=== PATIENT | male | born 1940 | race African-American/Black ===

== ENCOUNTER → 2016-10-18 | Outpatient (CLI) | payer MEDICARE, MEDICAID ==
[~2016-10-18] MED LIST: AMLO10TA80 PO; HYDR25TA PO; IBUP-1510 PO; INSLIS SQ; INSU3INS6 SUBCUT; ISOS20TA8 PO; MELO-57 PO; METF10002 PO; OMEP40CA34 PO; SITA50TA3 PO; VALS320T9 PO
== END | disposition home or self-care (01) ==
LOC: CT 12:35
PROVIDERS: ATTEND Internal Medicine Cardiovascular Disease
DX: M47.896 Other spondylosis, lumbar region (principal); M54.40 Lumbago with sciatica, unspecified side; M48.06 Spinal stenosis, lumbar region; M47.894 Other spondylosis, thoracic region
CPT/HCPCS: 72128; 72131

== ENCOUNTER → 2019-08-13 | Day surgery (SDC) | payer MEDICARE, MEDICAID ==
[~2019-08-13] MED LIST changes: -IBUP-1510 PO; +IBUP-2030 PO; +LIDOCAINE HCL 1% 20ML VIAL (Pyxis) INJ ONE; +MELO-104 PO; -MELO-57 PO; +METF-416 PO; -METF10002 PO; +OMEP40CA12 PO; -OMEP40CA34 PO; +SODIUM BICARBONATE 4% (2.4MEQ) 5ML VIAL IV ONE; +VALS320T2 PO; -VALS320T9 PO
== END | disposition home or self-care (01) ==
LOC: RAD 09:39
PROVIDERS: ATTEND Internal Medicine
DX: E04.2 Nontoxic multinodular goiter (principal); Z79.82 Long term (current) use of aspirin; Z79.899 Other long term (current) drug therapy; Z79.4 Long term (current) use of insulin; Z79.84 Long term (current) use of oral hypoglycemic drugs; Z83.3 Family history of diabetes mellitus; Z80.8 Family history of malignant neoplasm of other organs or systems; Z82.3 Family history of stroke
CPT/HCPCS: 10005; 10006; 88172; 88173; J3490

== ENCOUNTER 2019-08-17 10:45 | Inpatient (IN) | payer MEDICARE, MEDICAID ==
[~2019-08-17] VITALS: Ht 182.9 cm; Wt 82.2 kg
[~2019-08-17 10:45] MED LIST changes: -LIDOCAINE HCL 1% 20ML VIAL (Pyxis) INJ ONE; -SODIUM BICARBONATE 4% (2.4MEQ) 5ML VIAL IV ONE
[2019-08-17 13:07] LABS: BASOPHILS % 1.1 % (0.0-2.0); HEMATOCRIT. 42.8 % (42.0-52.0); HEMOGLOBIN. 14.3 g/dL (14.0-18.0); LYMPHOCYTES % 35.7 % (20.0-50.0); MEAN CORPUSCULAR HEMOGLOBIN 28.9 pg (28.0-32.0); MEAN CORPUSCULAR VOLUME 86.5 fL (80.0-94.0); MEAN PLATELET VOLUME 8.4 fl (7.4-10.4); MONOCYTES % 6.2 % (2.0-8.0); PLATELET 146 x1000/uL (130-400); RED BLOOD CELL COUNT 4.95 mill/uL (4.7-6.1); RED CELL DISTRIBUTION WIDTH 13.2 % (11.6-14.6)
[2019-08-17 13:10] LABS: CHLORIDE 106 mEq/L (98-107)
[2019-08-17 13:13] LABS: PARTIAL THROMBOPLASTIN TIME 26.7 sec (23.4-31.0); PROTHROMBIN TIME 10.8 sec (9.6-11.0)
[2019-08-17] MEDS ORDERED: TETRACAINE 0.5% OPHTH DROPS 4ML RIGHTEYE ONE (14:00)
[2019-08-17 14:39] LABS: T4 FREE 1.07 ng/dL (0.76-1.46)
[2019-08-17 22:30] VITALS: BP 160/96
[2019-08-17] MEDS ORDERED: HYDROCODONE/APAP 7.5/325MG 1 TAB TABLET PO PRN (23:15)
[2019-08-17] MEDS ORDERED: DEXTROSE 50% WATER 50ML SYRINGE IV PRN (23:15)
[2019-08-18 00:57] VITALS: BP 119/74
[2019-08-18] MEDS ORDERED: POTASSIUM CHLORIDE 20MEQ TABLET SR PO NR (01:00)
[2019-08-18 04:00] VITALS: BP 152/82
[2019-08-18] MEDS: BLOOD SUGAR DIAGNOSTIC STRIP TEST SCH ×4 (07:20→21:01)
[2019-08-18] MEDS: INSULIN LISPRO 100 UNITS/ML SUBCUT SCH ×4 (07:50→21:50)
[2019-08-18 08:04] VITALS: BP 171/88
[2019-08-18] MEDS ORDERED: AMLODIPINE 5MG TABLET PO SCH (09:00)
[2019-08-18] MEDS: CLOPIDOGREL 75MG TABLET PO SCH (09:16)
[2019-08-18] MEDS: DOCUSATE SODIUM 100MG CAPSULE PO SCH (09:16)
[2019-08-18] MEDS: ASPIRIN 81MG EC TABLET PO SCH (09:17)
[2019-08-18] MEDS: ISOSORBIDE DINITRATE 20MG TABLET PO SCH ×2 (09:17→18:03)
[2019-08-18] MEDS: LOSARTAN POTASSIUM 100 MG TABLET PO SCH (09:18)
[2019-08-18] MEDS: AMLODIPINE 10MG TABLET PO SCH (10:41)
[2019-08-18 12:04] VITALS: BP 117/64
[2019-08-18 12:27] LABS: CHLORIDE 107 mEq/L (98-107)
[2019-08-18 16:04] VITALS: BP 113/58
[2019-08-18 20:00] VITALS: BP 116/78
[2019-08-18] MEDS: ATORVASTATIN CALCIUM 40MG TABLET PO SCH (20:01)
[2019-08-18] MEDS: INSULIN GLARGINE UD 100 UNITS/ML SYR SUBCUT SCH (21:50)
[2019-08-18] MEDS ORDERED: INSULIN GLARGINE UD 100 UNITS/ML SYR SUBCUT SCH (22:00)
[2019-08-19] VITALS: BP 127/75
[2019-08-19 04:00] VITALS: BP 137/89
[2019-08-19] MEDS: BLOOD SUGAR DIAGNOSTIC STRIP TEST SCH ×4 (06:45→21:05)
[2019-08-19] MEDS: INSULIN LISPRO 100 UNITS/ML SUBCUT SCH ×4 (07:01→21:05)
[2019-08-19] MEDS: CLOPIDOGREL 75MG TABLET PO SCH (11:27)
[2019-08-19] MEDS: AMLODIPINE 10MG TABLET PO SCH (11:27)
[2019-08-19] MEDS: DOCUSATE SODIUM 100MG CAPSULE PO SCH (11:28)
[2019-08-19] MEDS: ISOSORBIDE DINITRATE 20MG TABLET PO SCH ×2 (11:28→17:00)
[2019-08-19] MEDS: ASPIRIN 81MG EC TABLET PO SCH (11:28)
[2019-08-19] MEDS: LOSARTAN POTASSIUM 100 MG TABLET PO SCH (11:30)
[2019-08-19 12:00] VITALS: BP 149/88
[2019-08-19 16:00] VITALS: BP 130/78
[2019-08-19 20:00] VITALS: BP 122/77
[2019-08-19] MEDS: ATORVASTATIN CALCIUM 40MG TABLET PO SCH (21:02)
[2019-08-19] MEDS: INSULIN GLARGINE UD 100 UNITS/ML SYR SUBCUT SCH (21:05)
[2019-08-20] VITALS: BP 141/86
[2019-08-20 04:00] VITALS: BP 153/97
[2019-08-20] MEDS: BLOOD SUGAR DIAGNOSTIC STRIP TEST SCH (06:23)
[2019-08-20] MEDS: INSULIN LISPRO 100 UNITS/ML SUBCUT SCH (07:47)
[2019-08-20 08:00] VITALS: BP 152/82
[2019-08-20] MEDS: DOCUSATE SODIUM 100MG CAPSULE PO SCH (09:00)
[2019-08-20] MEDS: ISOSORBIDE DINITRATE 20MG TABLET PO SCH (09:00)
[2019-08-20] MEDS: LOSARTAN POTASSIUM 100 MG TABLET PO SCH (09:00)
[2019-08-20] MEDS: CLOPIDOGREL 75MG TABLET PO SCH (09:00)
[2019-08-20] MEDS: AMLODIPINE 10MG TABLET PO SCH (09:00)
[2019-08-20] MEDS: ASPIRIN 81MG EC TABLET PO SCH (09:00)
[2019-08-20 10:15] VITALS: BP 152/82
== END 2019-08-20 11:25 | disposition home health service (06) | DRG 206 ==
LOC: ER 11:16 → 6WST 13:50 → EDBEDREQ 14:03 → EDBEDREQTM 14:04 → ENRESERV 20:59
PROVIDERS: ADMIT Internal Medicine; ATTEND Internal Medicine
DX: M94.0 Chondrocostal junction syndrome [Tietze] (principal); F11.20 Opioid dependence, uncomplicated; I25.2 Old myocardial infarction; E04.9 Nontoxic goiter, unspecified; E11.22 Type 2 diabetes mellitus with diabetic chronic kidney disease; F03.90 Unspecified dementia, unspecified severity, without behavioral disturbance, psychotic disturbance, mood disturbance, and anxiety; F17.200 Nicotine dependence, unspecified, uncomplicated; F32.9 Major depressive disorder, single episode, unspecified; I25.10 Atherosclerotic heart disease of native coronary artery without angina pectoris; J44.9 Chronic obstructive pulmonary disease, unspecified; M48.061 Spinal stenosis, lumbar region without neurogenic claudication; G89.4 Chronic pain syndrome; I12.9 Hypertensive chronic kidney disease with stage 1 through stage 4 chronic kidney disease, or unspecified chronic kidney disease; R29.6 Repeated falls; N18.9 Chronic kidney disease, unspecified; Z60.2 Problems related to living alone; E89.0 Postprocedural hypothyroidism; M51.36 Other intervertebral disc degeneration, lumbar region; E78.00 Pure hypercholesterolemia, unspecified; Z86.73 Personal history of transient ischemic attack (TIA), and cerebral infarction without residual deficits; Z82.49 Family history of ischemic heart disease and other diseases of the circulatory system; Z95.1 Presence of aortocoronary bypass graft; Z79.4 Long term (current) use of insulin; Z79.899 Other long term (current) drug therapy; Z79.84 Long term (current) use of oral hypoglycemic drugs
CPT/HCPCS: 36415; 71045; 72110; 76770; 80048; 80053; 82962; 83036; 83880; 84439; 84443; 84484; 85025; 93005; 93306; 93970; 99285; J1815

== ENCOUNTER 2019-10-04 20:18 | Inpatient (IN) | payer MEDICARE, MEDICAID ==
[~2019-10-04] VITALS: Ht 182.9 cm; Wt 98.9 kg
[~2019-10-04 20:18] MED LIST changes: -IBUP-2030 PO; -INSLIS SQ; -MELO-104 PO; -METF-416 PO; -VALS320T2 PO
[2019-10-04 22:23] LABS: CLARITY URINE CLEAR (CLEAR); COLOR URINE YELLOW (YELLOW); KETONES URINE NEGATIVE (NEGATIVE); LEUKOCYTE ESTERASE URINE NEGATIVE (NEGATIVE); NITRITE URINE NEGATIVE (NEGATIVE); OCCULT BLOOD URINE NEGATIVE (NEGATIVE); PROTEIN URINE 1+ (NEGATIVE); SPECIFIC GRAVITY URINE 1.013 (1.005-1.030)
[2019-10-04 22:45] LABS: *AMPHETAMINES SCREEN URINE NEGATIVE (NEGATIVE); *BARBITURATES SCREEN URINE NEGATIVE (NEGATIVE); *BENZODIAZEPINES SCREEN URINE NEGATIVE (NEGATIVE); *COCAINE SCREEN URINE NEGATIVE (NEGATIVE); CANNABINOID URINE SCREEN NEGATIVE (NEGATIVE); METHADONE URINE SCREEN NEGATIVE (NEGATIVE); OPIATES URINE SCREEN PRESUMTIVE POSITIVE (NEGATIVE); PHENCYCLIDINE URINE SCREEN NEGATIVE (NEGATIVE)
[2019-10-04 23:05] LABS: EOSINOPHILS % 3.7 % (0.0-5.0); HEMATOCRIT. 44.4 % (42.0-52.0); HEMOGLOBIN. 14.8 g/dL (14.0-18.0); LYMPHOCYTES % 33.5 % (20.0-50.0); MEAN CORPUSCULAR HEMOGLOBIN 28.9 pg (28.0-32.0); MEAN CORPUSCULAR VOLUME 86.7 fL (80.0-94.0); MEAN PLATELET VOLUME 8.6 fl (7.4-10.4); MONOCYTES % 5.9 % (2.0-8.0); NEUTROPHILS % 55.9 % (40.0-76.0); PLATELET 131 x1000/uL (130-400); RED BLOOD CELL COUNT 5.12 mill/uL (4.7-6.1); RED CELL DISTRIBUTION WIDTH 13.3 % (11.6-14.6)
[2019-10-04 23:12] LABS: CHLORIDE 106 mEq/L (98-107)
[2019-10-04 23:17] LABS: ETHANOL BLOOD < 10 mg/dL
[2019-10-04 23:19] LABS: LDL CHOLESTEROL 132 mg/dL (5-100)
[2019-10-05] VITALS (10 sets, daily range): BP systolic 98–166; BP diastolic 58–94
[2019-10-05 00:04] LABS: PROTHROMBIN TIME 11.1 sec (9.6-11.0)
[2019-10-05] MEDS ORDERED: ASPIRIN 325MG EC TABLET PO ONE (00:15)
[2019-10-05] MEDS ORDERED: IOHEXOL-350 100 ML BOTTLE ONE (01:24)
[2019-10-05] MEDS ORDERED: ONDANSETRON HCL 4MG/2ML INJ IV PRN (05:00)
[2019-10-05] MEDS ORDERED: CLONIDINE 0.1MG TABLET PO PRN (05:00)
[2019-10-05] MEDS ORDERED: ACETAMINOPHEN 325MG TABLET PO PRN (05:00)
[2019-10-05 05:40] LABS: BASOPHILS % 1.2 % (0.0-2.0); EOSINOPHILS % 3.4 % (0.0-5.0); HEMATOCRIT. 40.8 % (42.0-52.0); HEMOGLOBIN. 13.7 g/dL (14.0-18.0); LYMPHOCYTES % 32.7 % (20.0-50.0); MEAN CORPUSCULAR HEMOGLOBIN 28.9 pg (28.0-32.0); MEAN CORPUSCULAR VOLUME 85.9 fL (80.0-94.0); MEAN PLATELET VOLUME 8.8 fl (7.4-10.4); MONOCYTES % 7.2 % (2.0-8.0); NEUTROPHILS % 55.5 % (40.0-76.0); PLATELET 142 x1000/uL (130-400); RED BLOOD CELL COUNT 4.74 mill/uL (4.7-6.1); RED CELL DISTRIBUTION WIDTH 13.3 % (11.6-14.6)
[2019-10-05 06:19] LABS: CHLORIDE 107 mEq/L (98-107)
[2019-10-05] MEDS: DEXT 5%/0.45% NACL 1000ML 1,000 ML IV SCH (06:52)
[2019-10-05] MEDS ORDERED: ENOXAPARIN 30MG/0.3ML SYR SUBCUT SCH (09:00)
[2019-10-05] MEDS ORDERED: ENOXAPARIN 40MG/0.4ML SYR SUBCUT SCH (09:00)
[2019-10-05] MEDS ORDERED: AMLODIPINE 10MG TABLET PO SCH (12:00)
[2019-10-05] MEDS ORDERED: ISOSORBIDE DINITRATE 20MG TABLET PO SCH (12:00)
[2019-10-05] MEDS: AMLODIPINE 5MG TABLET PO SCH ×2 (17:04→21:17)
[2019-10-05] MEDS: LOSARTAN POTASSIUM 25 MG TABLET PO SCH ×2 (17:07→21:18)
[2019-10-05] MEDS: ISOSORBIDE DINITRATE 20MG TABLET PO SCH ×2 (17:08→21:17)
[2019-10-05] MEDS: ATORVASTATIN CALCIUM 40MG TABLET PO SCH (21:18)
[2019-10-05] MEDS: INSULIN GLARGINE UD 100 UNITS/ML SYR SUBCUT SCH (21:19)
[2019-10-06] VITALS (11 sets, daily range): BP systolic 122–174; BP diastolic 64–100
[2019-10-06] MEDS: DEXT 5%/0.45% NACL 1000ML 1,000 ML IV SCH (05:50)
[2019-10-06] MEDS: PANTOPRAZOLE 40MG DR TABLET PO SCH (06:07)
[2019-10-06] MEDS: GLIMEPIRIDE 2MG TABLET PO SCH (06:08)
[2019-10-06] MEDS: ISOSORBIDE DINITRATE 20MG TABLET PO SCH ×3 (06:08→21:20)
[2019-10-06 07:13] LABS: BASOPHILS % 0.6 % (0.0-2.0); EOSINOPHILS % 3.1 % (0.0-5.0); HEMATOCRIT. 42.6 % (42.0-52.0); HEMOGLOBIN. 14.1 g/dL (14.0-18.0); LYMPHOCYTES % 40.8 % (20.0-50.0); MEAN CORPUSCULAR HEMOGLOBIN 28.6 pg (28.0-32.0); MEAN CORPUSCULAR VOLUME 86.5 fL (80.0-94.0); MEAN PLATELET VOLUME 8.7 fl (7.4-10.4); MONOCYTES % 6.6 % (2.0-8.0); NEUTROPHILS % 48.9 % (40.0-76.0); PLATELET 161 x1000/uL (130-400); RED BLOOD CELL COUNT 4.93 mill/uL (4.7-6.1); RED CELL DISTRIBUTION WIDTH 13.3 % (11.6-14.6)
[2019-10-06 07:28] LABS: PHOSPHORUS 2.9 mg/dL (2.5-4.9)
[2019-10-06] MEDS ORDERED: HYDRALAZINE 20MG/ML VIAL IV PRN (07:45)
[2019-10-06] MEDS: LOSARTAN POTASSIUM 25 MG TABLET PO SCH ×2 (09:57→21:19)
[2019-10-06] MEDS: AMLODIPINE 5MG TABLET PO SCH ×2 (09:58→21:19)
[2019-10-06] MEDS: ATORVASTATIN CALCIUM 40MG TABLET PO SCH (21:19)
[2019-10-06] MEDS: INSULIN GLARGINE UD 100 UNITS/ML SYR SUBCUT SCH (21:44)
[2019-10-07] VITALS (7 sets, daily range): BP systolic 124–151; BP diastolic 73–92
[2019-10-07] MEDS: DEXT 5%/0.45% NACL 1000ML 1,000 ML IV SCH (05:00)
[2019-10-07] MEDS: ISOSORBIDE DINITRATE 20MG TABLET PO SCH ×2 (06:42→13:04)
[2019-10-07] MEDS: GLIMEPIRIDE 2MG TABLET PO SCH (06:42)
[2019-10-07] MEDS: PANTOPRAZOLE 40MG DR TABLET PO SCH (06:42)
[2019-10-07] MEDS: LOSARTAN POTASSIUM 25 MG TABLET PO SCH (08:17)
[2019-10-07] MEDS: AMLODIPINE 5MG TABLET PO SCH (08:17)
== END 2019-10-07 16:05 | DRG 64 ==
LOC: ER 20:18 → EDBEDREQ 23:32 → EDBEDREQTM 23:32 → EDBEDREQSVC 23:32 → ENRESERV 10-05 01:50 → UNDOADMIN 10-05 03:11 → 3WST 10-05 03:11 → 5WST 10-07 01:12 → 3WST 10-07 01:12 → UNDODISIN 10-07 16:00 → 5WST 10-07 16:05
PROVIDERS: ADMIT Internal Medicine; ATTEND Internal Medicine
PROC: 4A00X4Z Measurement of Central Nervous Electrical Activity, External Approach (ICD-10-PCS; principal; 2019-10-06)
DX: I63.9 Cerebral infarction, unspecified (principal); N17.0 Acute kidney failure with tubular necrosis; G81.91 Hemiplegia, unspecified affecting right dominant side; I10 Essential (primary) hypertension; E11.9 Type 2 diabetes mellitus without complications; E78.5 Hyperlipidemia, unspecified; R47.1 Dysarthria and anarthria; J44.9 Chronic obstructive pulmonary disease, unspecified; Z86.73 Personal history of transient ischemic attack (TIA), and cerebral infarction without residual deficits; I25.10 Atherosclerotic heart disease of native coronary artery without angina pectoris; R29.810 Facial weakness; I65.29 Occlusion and stenosis of unspecified carotid artery; R47.81 Slurred speech; I68.0 Cerebral amyloid angiopathy; Z87.891 Personal history of nicotine dependence; Z91.19 Patient's noncompliance with other medical treatment and regimen; Z95.1 Presence of aortocoronary bypass graft; Z79.899 Other long term (current) drug therapy; Z79.4 Long term (current) use of insulin
CPT/HCPCS: 36415; 70496; 70498; 70551; 71045; 80048; 80053; 80305; 80320; 81003; 82962; 83721; 83735; 84100; 84484; 85025; 92610; 93005; 93306; 93880; 95816; 97110; 97116; 97162; 97166; 97530; 97535; 99285; J0360; J1815; Q9967; G0480

== ENCOUNTER 2019-10-05 16:05 | Inpatient (IN) | payer MEDICARE, MEDICAID ==
[~2019-10-05] VITALS: Ht 182.9 cm; Wt 93.0 kg
[2019-10-07 18:01] VITALS: BP 153/83
[2019-10-07 18:07] VITALS: BP 153/83
[2019-10-07] MEDS ORDERED: ONDANSETRON HCL 4MG/2ML INJ IV PRN (18:15)
[2019-10-07] MEDS ORDERED: DEXT 5%/0.45% NACL 1000ML 1,000 ML IV SCH (18:15)
[2019-10-07] MEDS ORDERED: HYDRALAZINE 20MG/ML VIAL IV PRN (18:15)
[2019-10-07] MEDS ORDERED: CLONIDINE 0.1MG TABLET PO PRN (18:15)
[2019-10-07] MEDS ORDERED: HYDRALAZINE 10 MG in SODIUM CHLORIDE 0.9% 49.5 ML IV PRN (18:30)
[2019-10-07] MEDS ORDERED: HYDRALAZINE 5 MG in SODIUM CHLORIDE 0.9% 49.75 ML IV PRN (18:30)
[2019-10-07 20:00] VITALS: BP 147/89
[2019-10-07] MEDS: LOSARTAN POTASSIUM 25 MG TABLET PO SCH (21:21)
[2019-10-07] MEDS: AMLODIPINE 5MG TABLET PO SCH (21:21)
[2019-10-07] MEDS: ATORVASTATIN CALCIUM 40MG TABLET PO SCH (21:21)
[2019-10-07] MEDS: ISOSORBIDE DINITRATE 20MG TABLET PO SCH (21:22)
[2019-10-07] MEDS: INSULIN GLARGINE UD 100 UNITS/ML SYR SUBCUT SCH (22:10)
[2019-10-08] MEDS: ISOSORBIDE DINITRATE 20MG TABLET PO SCH ×3 (05:45→21:56)
[2019-10-08] MEDS: PANTOPRAZOLE 40MG DR TABLET PO SCH (06:22)
[2019-10-08] MEDS: GLIMEPIRIDE 2MG TABLET PO SCH (06:23)
[2019-10-08 08:00] VITALS: BP 119/65
[2019-10-08] MEDS: AMLODIPINE 5MG TABLET PO SCH ×2 (08:24→20:13)
[2019-10-08] MEDS: LOSARTAN POTASSIUM 25 MG TABLET PO SCH ×2 (08:24→20:13)
[2019-10-08 13:00] VITALS: BP 151/85
[2019-10-08] MEDS: ACETAMINOPHEN 325MG TABLET PO PRN (14:39)
[2019-10-08 20:00] VITALS: BP_SYST 137; BP_SYST 151; BP_DIAS 74; BP_DIAS 80
[2019-10-08] MEDS: DOCUSATE SODIUM 100MG CAPSULE PO SCH (20:12)
[2019-10-08] MEDS: ATORVASTATIN CALCIUM 40MG TABLET PO SCH (20:13)
[2019-10-08] MEDS: INSULIN GLARGINE UD 100 UNITS/ML SYR SUBCUT SCH (22:10)
[2019-10-09] MEDS: ISOSORBIDE DINITRATE 20MG TABLET PO SCH ×3 (05:26→21:14)
[2019-10-09] MEDS: PANTOPRAZOLE 40MG DR TABLET PO SCH (06:01)
[2019-10-09] MEDS: GLIMEPIRIDE 2MG TABLET PO SCH (06:01)
[2019-10-09 06:44] LABS: BASOPHILS % 0.6 % (0.0-2.0); HEMOGLOBIN. 13.3 g/dL (14.0-18.0); LYMPHOCYTES % 45.3 % (20.0-50.0); MEAN CORPUSCULAR HEMOGLOBIN 28.7 pg (28.0-32.0); MEAN CORPUSCULAR VOLUME 85.9 fL (80.0-94.0); MEAN PLATELET VOLUME 8.8 fl (7.4-10.4); MONOCYTES % 7.5 % (2.0-8.0); NEUTROPHILS % 42.6 % (40.0-76.0); PLATELET 155 x1000/uL (130-400); RED BLOOD CELL COUNT 4.65 mill/uL (4.7-6.1); RED CELL DISTRIBUTION WIDTH 13.2 % (11.6-14.6)
[2019-10-09 08:00] VITALS: BP 113/66
[2019-10-09] MEDS: AMLODIPINE 5MG TABLET PO SCH ×3 (08:55→21:14)
[2019-10-09] MEDS: LOSARTAN POTASSIUM 25 MG TABLET PO SCH (09:00)
[2019-10-09] MEDS: DOCUSATE SODIUM 100MG CAPSULE PO SCH ×2 (09:57→17:48)
[2019-10-09] MEDS ORDERED: POTASSIUM CHLORIDE 20MEQ/PACKET PO SCH (11:15)
[2019-10-09] MEDS: LOSARTAN POTASSIUM 100 MG TABLET PO SCH (17:48)
[2019-10-09 20:00] VITALS: BP 145/89
[2019-10-09] MEDS: ATORVASTATIN CALCIUM 40MG TABLET PO SCH (21:13)
[2019-10-09] MEDS: INSULIN GLARGINE UD 100 UNITS/ML SYR SUBCUT SCH (21:57)
[2019-10-10] MEDS: ISOSORBIDE DINITRATE 20MG TABLET PO SCH ×3 (05:46→22:12)
[2019-10-10] MEDS: BISACODYL 5MG TABLET PO PRN (05:47)
[2019-10-10] MEDS: GLIMEPIRIDE 2MG TABLET PO SCH (06:28)
[2019-10-10] MEDS: PANTOPRAZOLE 40MG DR TABLET PO SCH (06:28)
[2019-10-10 07:09] LABS: BASOPHILS % 0.8 % (0.0-2.0); EOSINOPHILS % 3.1 % (0.0-5.0); HEMATOCRIT. 41.4 % (42.0-52.0); HEMOGLOBIN. 13.9 g/dL (14.0-18.0); LYMPHOCYTES % 44.6 % (20.0-50.0); MEAN CORPUSCULAR HEMOGLOBIN 28.7 pg (28.0-32.0); MEAN CORPUSCULAR VOLUME 85.4 fL (80.0-94.0); MEAN PLATELET VOLUME 8.8 fl (7.4-10.4); MONOCYTES % 6.9 % (2.0-8.0); NEUTROPHILS % 44.6 % (40.0-76.0); PLATELET 174 x1000/uL (130-400); RED BLOOD CELL COUNT 4.84 mill/uL (4.7-6.1); RED CELL DISTRIBUTION WIDTH 13.1 % (11.6-14.6)
[2019-10-10 08:30] VITALS: BP 117/53
[2019-10-10] MEDS: AMLODIPINE 5MG TABLET PO SCH ×2 (08:35→20:38)
[2019-10-10] MEDS: DOCUSATE SODIUM 100MG CAPSULE PO SCH ×2 (08:35→16:20)
[2019-10-10] MEDS: ACETAMINOPHEN 325MG TABLET PO PRN ×2 (08:35→14:41)
[2019-10-10] MEDS: LOSARTAN POTASSIUM 100 MG TABLET PO SCH (08:35)
[2019-10-10 20:00] VITALS: BP 146/84
[2019-10-10] MEDS: ATORVASTATIN CALCIUM 40MG TABLET PO SCH (20:38)
[2019-10-10] MEDS: INSULIN GLARGINE UD 100 UNITS/ML SYR SUBCUT SCH (22:12)
[2019-10-11] MEDS: PANTOPRAZOLE 40MG DR TABLET PO SCH (06:06)
[2019-10-11] MEDS: ISOSORBIDE DINITRATE 20MG TABLET PO SCH ×3 (06:06→17:01)
[2019-10-11] MEDS: GLIMEPIRIDE 2MG TABLET PO SCH (06:06)
[2019-10-11 06:48] LABS: BASOPHILS % 0.8 % (0.0-2.0); HEMATOCRIT. 41.5 % (42.0-52.0); LYMPHOCYTES % 46.2 % (20.0-50.0); MEAN PLATELET VOLUME 8.7 fl (7.4-10.4); MONOCYTES % 6.5 % (2.0-8.0); NEUTROPHILS % 42.5 % (40.0-76.0); PLATELET 170 x1000/uL (130-400); RED BLOOD CELL COUNT 4.83 mill/uL (4.7-6.1); RED CELL DISTRIBUTION WIDTH 13.1 % (11.6-14.6)
[2019-10-11] MEDS ORDERED: POTASSIUM CHLORIDE 20MEQ/PACKET PO SCH (07:45)
[2019-10-11] MEDS ORDERED: DEXT 5%/0.45% NACL 1000ML 1,000 ML IV ONE (07:45)
[2019-10-11 08:10] VITALS: BP 123/58
[2019-10-11 08:14] LABS: PHOSPHORUS 3.4 mg/dL (2.5-4.9)
[2019-10-11] MEDS: DOCUSATE SODIUM 100MG CAPSULE PO SCH ×2 (08:38→17:01)
[2019-10-11] MEDS: AMLODIPINE 5MG TABLET PO SCH ×2 (08:38→21:43)
[2019-10-11 13:25] VITALS: BP 130/46
[2019-10-11] MEDS ORDERED: LIDOCAINE 5% PATCH TOP PRN (16:15)
[2019-10-11 16:52] VITALS: BP 141/77
[2019-10-11 20:00] VITALS: BP 143/71
[2019-10-11] MEDS: ATORVASTATIN CALCIUM 40MG TABLET PO SCH (21:43)
[2019-10-11] MEDS: FAMOTIDINE 20MG TABLET PO SCH (21:43)
[2019-10-11] MEDS: POLYVINYL ALCOHOL OPHTH DROPS 15ML BOTHEYE PRN (21:43)
[2019-10-11] MEDS: INSULIN GLARGINE UD 100 UNITS/ML SYR SUBCUT SCH (22:11)
[2019-10-12] MEDS: POLYVINYL ALCOHOL OPHTH DROPS 15ML BOTHEYE PRN ×2 (05:36→21:35)
[2019-10-12] MEDS: GLIMEPIRIDE 2MG TABLET PO SCH (06:36)
[2019-10-12 07:27] LABS: BASOPHILS % 0.6 % (0.0-2.0); EOSINOPHILS % 4.2 % (0.0-5.0); HEMATOCRIT. 40.4 % (42.0-52.0); HEMOGLOBIN. 13.1 g/dL (14.0-18.0); LYMPHOCYTES % 34.9 % (20.0-50.0); MEAN CORPUSCULAR HEMOGLOBIN 28.2 pg (28.0-32.0); MEAN CORPUSCULAR VOLUME 86.7 fL (80.0-94.0); MEAN PLATELET VOLUME 8.6 fl (7.4-10.4); MONOCYTES % 7.5 % (2.0-8.0); NEUTROPHILS % 52.8 % (40.0-76.0); PLATELET 162 x1000/uL (130-400); RED BLOOD CELL COUNT 4.65 mill/uL (4.7-6.1); RED CELL DISTRIBUTION WIDTH 13.6 % (11.6-14.6)
[2019-10-12 08:01] VITALS: BP 146/77
[2019-10-12 08:09] LABS: PHOSPHORUS 2.6 mg/dL (2.5-4.9)
[2019-10-12] MEDS: ISOSORBIDE DINITRATE 20MG TABLET PO SCH ×3 (08:20→17:21)
[2019-10-12] MEDS: AMLODIPINE 5MG TABLET PO SCH ×2 (08:20→21:35)
[2019-10-12] MEDS: DOCUSATE SODIUM 100MG CAPSULE PO SCH ×2 (08:21→17:21)
[2019-10-12] MEDS: POTASSIUM CHLORIDE 20MEQ TABLET SR PO SCH (14:11)
[2019-10-12] MEDS: BISACODYL 5MG TABLET PO PRN (17:21)
[2019-10-12 20:00] VITALS: BP 133/76
[2019-10-12] MEDS: ATORVASTATIN CALCIUM 40MG TABLET PO SCH (21:34)
[2019-10-12] MEDS: FAMOTIDINE 20MG TABLET PO SCH (21:34)
[2019-10-12] MEDS: INSULIN GLARGINE UD 100 UNITS/ML SYR SUBCUT SCH (21:43)
[2019-10-13 06:29] LABS: BASOPHILS % 0.8 % (0.0-2.0); EOSINOPHILS % 4.1 % (0.0-5.0); HEMATOCRIT. 40.6 % (42.0-52.0); HEMOGLOBIN. 13.7 g/dL (14.0-18.0); LYMPHOCYTES % 43.1 % (20.0-50.0); MEAN CORPUSCULAR VOLUME 86.1 fL (80.0-94.0); MEAN PLATELET VOLUME 8.6 fl (7.4-10.4); MONOCYTES % 6.7 % (2.0-8.0); NEUTROPHILS % 45.3 % (40.0-76.0); PLATELET 168 x1000/uL (130-400); RED BLOOD CELL COUNT 4.71 mill/uL (4.7-6.1); RED CELL DISTRIBUTION WIDTH 13.1 % (11.6-14.6)
[2019-10-13 06:50] LABS: PHOSPHORUS 2.8 mg/dL (2.5-4.9)
[2019-10-13] MEDS: GLIMEPIRIDE 2MG TABLET PO SCH (07:00)
[2019-10-13 08:08] VITALS: BP 177/93
[2019-10-13] MEDS: POTASSIUM CHLORIDE 20MEQ TABLET SR PO SCH (09:15)
[2019-10-13] MEDS: AMLODIPINE 5MG TABLET PO SCH ×2 (09:15→20:13)
[2019-10-13] MEDS: DOCUSATE SODIUM 100MG CAPSULE PO SCH ×2 (09:15→17:46)
[2019-10-13] MEDS: ISOSORBIDE DINITRATE 20MG TABLET PO SCH ×3 (09:15→17:46)
[2019-10-13 20:00] VITALS: BP 140/70
[2019-10-13] MEDS: ATORVASTATIN CALCIUM 40MG TABLET PO SCH (20:13)
[2019-10-13] MEDS: ACETAMINOPHEN 325MG TABLET PO PRN (20:13)
[2019-10-13] MEDS: FAMOTIDINE 20MG TABLET PO SCH (20:13)
[2019-10-13] MEDS: INSULIN GLARGINE UD 100 UNITS/ML SYR SUBCUT SCH (21:58)
[2019-10-14] MEDS: GLIMEPIRIDE 2MG TABLET PO SCH (06:25)
[2019-10-14 07:35] VITALS: BP 147/91
[2019-10-14] MEDS: AMLODIPINE 5MG TABLET PO SCH ×2 (08:56→21:54)
[2019-10-14] MEDS: POTASSIUM CHLORIDE 20MEQ TABLET SR PO SCH (08:56)
[2019-10-14] MEDS: DOCUSATE SODIUM 100MG CAPSULE PO SCH ×2 (08:57→17:12)
[2019-10-14] MEDS: ISOSORBIDE DINITRATE 20MG TABLET PO SCH (08:57)
[2019-10-14 13:20] VITALS: BP 168/91
[2019-10-14] MEDS: ISOSORBIDE MONONITRATE 60MG TABLET SR 24HR PO SCH (14:46)
[2019-10-14] MEDS: HYDRALAZINE HCL 25MG TABLET PO SCH ×2 (14:47→21:54)
[2019-10-14 20:00] VITALS: BP 121/82
[2019-10-14] MEDS: ATORVASTATIN CALCIUM 40MG TABLET PO SCH (21:53)
[2019-10-14] MEDS: FAMOTIDINE 20MG TABLET PO SCH (21:53)
[2019-10-14] MEDS: INSULIN GLARGINE UD 100 UNITS/ML SYR SUBCUT SCH (22:06)
[2019-10-15] MEDS: ACETAMINOPHEN 325MG TABLET PO PRN ×2 (03:52→11:32)
[2019-10-15] MEDS: HYDRALAZINE HCL 25MG TABLET PO SCH ×3 (06:03→21:06)
[2019-10-15] MEDS: GLIMEPIRIDE 2MG TABLET PO SCH (06:03)
[2019-10-15 08:00] VITALS: BP 178/98
[2019-10-15] MEDS: DOCUSATE SODIUM 100MG CAPSULE PO SCH ×2 (08:02→16:34)
[2019-10-15] MEDS: POTASSIUM CHLORIDE 20MEQ TABLET SR PO SCH (08:02)
[2019-10-15] MEDS: AMLODIPINE 5MG TABLET PO SCH ×2 (08:02→20:14)
[2019-10-15] MEDS: ISOSORBIDE MONONITRATE 60MG TABLET SR 24HR PO SCH (08:03)
[2019-10-15 09:16] VITALS: BP 102/72
[2019-10-15 20:00] VITALS: BP 149/85
[2019-10-15] MEDS: FAMOTIDINE 20MG TABLET PO SCH (20:14)
[2019-10-15] MEDS: ATORVASTATIN CALCIUM 40MG TABLET PO SCH (20:14)
[2019-10-15] MEDS: INSULIN GLARGINE UD 100 UNITS/ML SYR SUBCUT SCH (21:06)
[2019-10-15] MEDS: BISACODYL 5MG TABLET PO PRN (22:26)
[2019-10-16] MEDS: HYDRALAZINE HCL 25MG TABLET PO SCH (05:57)
[2019-10-16] MEDS: GLIMEPIRIDE 2MG TABLET PO SCH (06:06)
[2019-10-16 07:36] VITALS: BP 138/84
[2019-10-16 07:48] VITALS: BP 138/84
[2019-10-16] MEDS: POTASSIUM CHLORIDE 20MEQ TABLET SR PO SCH (08:29)
[2019-10-16] MEDS: AMLODIPINE 5MG TABLET PO SCH (08:29)
[2019-10-16] MEDS: ISOSORBIDE MONONITRATE 60MG TABLET SR 24HR PO SCH (08:29)
[2019-10-16] MEDS: DOCUSATE SODIUM 100MG CAPSULE PO SCH (08:29)
[2019-10-16] MEDS: ACETAMINOPHEN 325MG TABLET PO PRN (09:19)
== END 2019-10-16 09:45 | disposition home health service (06) | DRG 57 ==
LOC: 5WST 16:05 → UNDOADMIN 16:05 → UNDODISIN 10-07 16:00 → 5WST 10-07 16:05
PROVIDERS: ADMIT Psychiatry & Neurology Neurology; ATTEND Internal Medicine
DX: I69.351 Hemiplegia and hemiparesis following cerebral infarction affecting right dominant side (principal); E85.4 Organ-limited amyloidosis; R29.810 Facial weakness; R47.81 Slurred speech; E11.9 Type 2 diabetes mellitus without complications; E78.5 Hyperlipidemia, unspecified; I10 Essential (primary) hypertension; R47.02 Dysphasia; I25.10 Atherosclerotic heart disease of native coronary artery without angina pectoris; J44.9 Chronic obstructive pulmonary disease, unspecified; M48.061 Spinal stenosis, lumbar region without neurogenic claudication; M19.90 Unspecified osteoarthritis, unspecified site; E87.6 Hypokalemia; R53.81 Other malaise; I65.29 Occlusion and stenosis of unspecified carotid artery; I25.118 Atherosclerotic heart disease of native coronary artery with other forms of angina pectoris; I68.0 Cerebral amyloid angiopathy; F32.9 Major depressive disorder, single episode, unspecified; R41.89 Other symptoms and signs involving cognitive functions and awareness; Z95.1 Presence of aortocoronary bypass graft; Z87.891 Personal history of nicotine dependence; Z86.73 Personal history of transient ischemic attack (TIA), and cerebral infarction without residual deficits; Z56.0 Unemployment, unspecified
CPT/HCPCS: 36415; 73620; 80048; 82550; 82962; 83735; 84100; 85025; 92523; 92610; 93970; 97110; 97116; 97162; 97166; 97530; 97535; J1815